=== PATIENT | male | born 1960 | race Caucasian/White ===

== ENCOUNTER → 2016-10-28 | Day surgery (SDC) | payer BC ==
[~2016-10-28] MED LIST: ACIDOPHILUS LAC1 CAP PO; ALPRAZOLAM1 MG PO; ANTI-DIARRHEAL2 M1 PO; BENTYL20 MG PO; CARAFATE PO; CITALOPRAM HBR40 MG PO; CYMBALTA PO; DEPO-TESTOS200 MG/M2 IM; FLAGYL PO; LAMICTAL25 MG PO; LIPITOR PO; LIPITOR20 MG PO; NORCO 10-325 TA1 TAB; NORCO 10-325 TA1 TAB PO; PANTOPRAZOLE SO40 MG PO; PHENERGAN25 M1 PO; PRILOSEC40 MG PO; PROTONIX PO; SARAFEM20 MG PO; SIMETHICONE180 MG; SYNTHROID PO; VITAMIN D1000 UNI2 PO; VOLTAREN75 MG PO; WELCHOL3.75 GM PO; ZOLOFT PO; ZYRTEC10 M1 PO
--- NOTE | ~2016-10-28 | OR ---
Unit #: [id number] #: [id number] Patient: FREDO HOLT [id number] [address] [place], [place] [address] [id number] O MR#: [id number] NAME: FREDO HOLT ROOM: Date of Procedure: 10/28/2016 Admission Date: 10/28/2016 Surgeon: Victor Manuel South M.D. : 1960 Attending Physician: Victor Manuel South M.D. Primary Care Physician: Hermila Thomson A.P.R.N. OPERATIVE REPORT PREOPERATIVE DIAGNOSES Post-laminectomy syndrome, degenerative disk disease, back pain and radiculopathy. POSTOPERATIVE DIAGNOSES Post-laminectomy syndrome, degenerative disk disease, back pain and radiculopathy. PROCEDURE PERFORMED Lumbar epidural steroid injection under fluoroscopic guidance with needle localization. INDICATIONS FOR PROCEDURE The patient is a 56-year-old male with worsening back and left hip radicular type pain. The patient is 20 years status post laminectomy with which he did well. He has had worsening pain, which is radicular in nature from his back towards his left flank and hip. Most significant pathology at the L1-L2 level where it was left-sided bulging and neural foraminal narrowing. He has moderate findings at the levels. Physical examination is consistent with radiculitis and other conservative measures have been unsuccessful. Plan is for trial of epidural steroids based on his history, pathology, and symptomatology. DESCRIPTION OF PROCEDURE The patient was placed in a seated position. Standard monitors were applied. Sterile prep and drape then of the lumbar area was performed. The skin then at the L2 level was localized with 1% lidocaine. An 18-gauge Qirotead needle was then advanced via loss of resistance technique and fluoroscopic guidance in toward the epidural space. After confirming proper positioning with fluoroscopy and radiographic contrast, 80 mg of Depo-Medrol and 6 mL of 0.125% bupivacaine were deposited. The patient tolerated the procedure otherwise well and was discharged to the recovery room in stable condition. Dictated by... Derrick Franco/nigel TD: 10/28/2016 11:02 JOB #: [id number] Unit #: [id number] #: [id number] Patient: HOLTFREDO Hubert CC: [facility] OPERATIVE REPORT Page 1 of 1 X Victor Manuel South MD X PROCEDURE OPERATIVE NOTE
== END | disposition home or self-care (01) ==
LOC: CCSC 07:04
DX: M96.1 Postlaminectomy syndrome, not elsewhere classified (principal); M51.16 Intervertebral disc disorders with radiculopathy, lumbar region
CPT/HCPCS: J1040; J2250

== ENCOUNTER → 2016-11-11 | Day surgery (SDC) | payer BC ==
--- NOTE | ~2016-11-11 | OR ---
Unit #: [id number] #: [id number] Patient: FREDO HOLT [id number] [address] [place], [place] [address] [id number] O MR#: [id number] NAME: FREDO HOLT ROOM: Date of Procedure: 11/11/2016 Admission Date: 11/11/2016 Surgeon: Victor Manuel South M.D. : 1960 Attending Physician: Victor Manuel South M.D. Primary Care Physician: Hermila Thomson A.P.R.N. OPERATIVE REPORT PREOPERATIVE DIAGNOSES Back pain, radiculopathy, post-laminectomy syndrome, and degenerative lumbar disk disease with myelopathy. POSTOPERATIVE DIAGNOSES Back pain, radiculopathy, post-laminectomy syndrome, and degenerative lumbar disk disease with myelopathy. PROCEDURE PERFORMED Lumbar epidural steroid injection with fluoroscopic guidance. INDICATIONS FOR PROCEDURE The patient is a 56-year-old male, who has back and left hip and lower extremity pain. He failed to settle with conservative treatment status post laminectomy. He has left sided disk bulge at the L1-L2 level, right-sided L2-L3. In addition, there are postoperative changes in his lower lumbar spine. Initial lumbar epidural steroid injection 2 weeks ago resulted in significant improvement in all components of his pain. Slowly, the pain returned, but he has maintained significant improvement in his back, hip and leg. The patient has good partial response. Based on his pathology, symptomatology, and response to treatment, we are going to proceed with a second injection today. DESCRIPTION OF PROCEDURE The patient was placed in a seated position. Standard monitors were applied. Sterile prep and drape of the lumbar area was performed. The skin then at the L3 level was localized with 1% lidocaine. An 18-gauge Bundle Buytead needle was then advanced via loss of resistance technique and fluoroscopic guidance in toward the epidural space. After confirming proper positioning with fluoroscopy and radiographic contrast, 80 mg of Depo-Medrol and 6 mL of 0.125% bupivacaine were deposited. The patient tolerated the procedure otherwise well and was discharged to the recovery room in stable condition. Dictated by... Derrick Franco/nigel TD: 11/11/2016 08:47 JOB #: [id number] Unit #: [id number] #: [id number] Patient: FREDO HOLT CC: [facility] OPERATIVE REPORT Page 1 of 1 X Victor Manuel South MD X PROCEDURE OPERATIVE NOTE
== END | disposition home or self-care (01) ==
LOC: CCSC 07:01
DX: M96.1 Postlaminectomy syndrome, not elsewhere classified (principal); M51.06 Intervertebral disc disorders with myelopathy, lumbar region; M51.16 Intervertebral disc disorders with radiculopathy, lumbar region; Z88.5 Allergy status to narcotic agent; Z79.899 Other long term (current) drug therapy
CPT/HCPCS: J1040; J2250